=== PATIENT | female | born 1940 | race Caucasian/White ===

== ENCOUNTER 2018-12-08 08:07 | Emergency (ER) | payer MEDICARE ==
[~2018-12-08] VITALS: Ht 157.5 cm; Wt 63.5 kg
[2018-12-08 08:37] LABS: BASOPHILS # (AUTO) 0.1 10^3/uL (0.0-0.1); BASOPHILS % (AUTO) 1 % (0-10); EOSINOPHILS # (AUTO) 0.1 10^3/uL (0.0-0.3); EOSINOPHILS % (AUTO) 2 % (0-10); HEMATOCRIT 23 % (35-52); HEMOGLOBIN 7.2 G/DL (11.5-16.0); LYMPHOCYTES # (AUTO) 1.4 X 10^3 (1.0-4.0); LYMPHOCYTES % (AUTO) 26 % (12-44); MEAN CORPUSCULAR HEMOGLOBIN 34 PG (25-34); MEAN CORPUSCULAR HGB CONC 31 G/DL (32-36); MEAN CORPUSCULAR VOLUME 109 FL (80-99); MEAN PLATELET VOLUME 9.6 FL (7.4-10.4); MONOCYTES # (AUTO) 0.7 X 10^3 (0.0-1.0); MONOCYTES % (AUTO) 13 % (0-12); NEUTROPHILS # (AUTO) 3.1 X 10^3 (1.8-7.8); NEUTROPHILS % (AUTO) 59 % (42-75); PLATELET COUNT 339 10^3/uL (130-400); RED CELL DISTRIBUTION WIDTH 18.8 % (10.0-14.5); WHITE BLOOD COUNT 5.3 10^3/uL (4.3-11.0)
[2018-12-08 08:46] LABS: INR 1.1 (0.8-1.4)
--- NOTE | 2018-12-08 08:54 | ED EENT ---
History of Present Illness General Stated Complaint: NOSE BLEED Source: patient, family Exam Limitations: no limitations (LADAN JIMENEZ MD) History of Present Illness Date Seen by Provider: Dec 08, 2018 Time Seen by Provider: 08:49 Initial Comments The patient is a 78-year-old white female who presents with a chief complaint of nosebleed. She and her state that this had begun last fall and mostly as a drip. More recently and specifically after November 19 this has become an increasing problem. She was seen by the ENT Department at [facility] on Monday. The doctor placed some sort of gel plug in her left nostril. The states that he stated that this should cover it however if bleeding recurred they would have to do a more invasive procedure. Today November 27 day and she is dripping constantly at a bright red blood with flow both anterior and posterior. It is noted that she takes Brilinta. There is also a history of CANAS. At the time of exam she is sitting upright and leaning forwards spitting bright red blood into the basin. Prearrival Treatment: squeezing nostrils, nasal packing (LADAN JIMENEZ MD) Allergies and Home Medications Allergies Coded Allergies: atorvastatin (Verified Allergy, Unknown, 12/08/18) latex (Verified Allergy, Unknown, 12/08/18) Uncoded Allergies: STERISTRIPS (Allergy, Unknown, 12/08/18) Home Medications Gabapentin 100 Mg Capsule, 100 MG PO Q8H, (Reported) Metoprolol Succinate 25 Mg Tab.er.24h, 25 MG PO DAILY, (Reported) Ticagrelor 90 Mg Tablet, 90 MG PO BID, (Reported) Patient Home Medication List Home Medication List Reviewed: Yes (LADAN JIMENEZ MD) Review of Systems Review of Systems Constitutional: see HPI Eyes: No Symptoms Reported Ears: No Symptoms Reported Nose: see HPI, epistaxis, bloody discharge Mouth: no symptoms reported Throat: no symptoms reported Respiratory: no symptoms reported Cardiovascular: no symptoms reported Gastrointestinal: no symptoms reported Musculoskeletal: no symptoms reported Skin: no symptoms reported Neurological: No Symptoms Reported Hematologic/Lymphatic: No Symptoms Reported Immunological/Allergic: no symptoms reported (LADAN JIMENEZ MD) Physical Exam Vital Signs Vital Signs - First Documented 12/08/18 08:49 Temp 98.5 Pulse 114 Resp 18 B/P (MAP) 148/57 (87) Pulse Ox 95 (CLEMENT CHRISTINE MD) Height, Weight, BMI Height: '" Weight: lbs. oz. 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 Skin: normal color (LADAN JIMENEZ MD) Progress/Results/Core Measures Results/Orders Lab Results Laboratory Tests Test 12/08/18 08:26 12/08/18 11:54 Range/Units White Blood Count 5.3 7.3 4.3-11.0 10^3/uL Red Blood Count 2.10 L 1.72 L 4.35-5.85 10^6/uL Hemoglobin 7.2 L 5.9 *L 11.5-16.0 G/DL Hematocrit 23 L 20 *L 35-52 % Mean Corpuscular Volume 109 H 113 H 80-99 FL Mean Corpuscular Hemoglobin 34 34 25-34 PG Mean Corpuscular Hemoglobin Concent 31 L 30 L 32-36 G/DL Red Cell Distribution Width 18.8 H 16.9 H 10.0-14.5 % Platelet Count 339 298 130-400 10^3/uL Mean Platelet Volume 9.6 8.8 7.4-10.4 FL Neutrophils (%) (Auto) 59 42-75 % Lymphocytes (%) (Auto) 26 12-44 % Monocytes (%) (Auto) 13 H 0-12 % Eosinophils (%) (Auto) 2 0-10 % Basophils (%) (Auto) 1 0-10 % Neutrophils # (Auto) 3.1 1.8-7.8 X 10^3 Lymphocytes # (Auto) 1.4 1.0-4.0 X 10^3 Monocytes # (Auto) 0.7 0.0-1.0 X 10^3 Eosinophils # (Auto) 0.1 0.0-0.3 10^3/uL Basophils # (Auto) 0.1 0.0-0.1 10^3/uL Prothrombin Time 14.0 12.2-14.7 SEC INR Comment 1.1 0.8-1.4 Sodium Level 137 135-145 MMOL/L Potassium Level 3.9 3.6-5.0 MMOL/L Chloride Level 108 H 98-107 MMOL/L Carbon Dioxide Level 17 L 21-32 MMOL/L Anion Gap 12 5-14 MMOL/L Blood Urea Nitrogen 11 7-18 MG/DL Creatinine 0.95 0.60-1.30 MG/DL Estimat Glomerular Filtration Rate 57 BUN/Creatinine Ratio 12 Glucose Level 229 H 70-105 MG/DL Calcium Level 9.2 8.5-10.1 MG/DL Corrected Calcium 9.7 8.5-10.1 MG/DL Total Bilirubin 0.5 0.1-1.0 MG/DL Aspartate Amino Transf (AST/SGOT) 25 5-34 U/L Alanine Aminotransferase (ALT/SGPT) 18 0-55 U/L Alkaline Phosphatase 79 40-136 U/L Total Protein 6.2 L 6.4-8.2 GM/DL Albumin 3.4 3.2-4.5 GM/DL (CLEMENT CHRISTINE MD) My Orders Orders - CLEMENT CHRISTINE MD Fresh Frozen Plasma (12/08/18 12:27) (CLEMENT CHRISTINE MD) Medications Given in ED Current Medications Medications Dose Ordered Sig/Trisha Route Start Time Stop Time Status Last Admin Dose Admin Oxymetazoline HCl 15 ml STK-MED ONCE .ROUTE 12/08/18 09:38 12/08/18 09:41 DC 12/08/18 09:46 15 ML (CLEMENT CHRISTINE MD) Vital Signs/I&O 12/08/18 12/08/18 08:49 12:32 Temp 98.5 98.2 Pulse 114 121 Resp 18 20 B/P (MAP) 148/57 (87) 135/48 Pulse Ox 95 95 (CLEMENT CHRISTINE MD) Progress Progress Note : Time: 12:45 Progress Note I arrived at shift change at noon and began assisting Dr. Jimenez with care of this patient. Heart rate is in the one teens and blood pressures are 120s to 160s systolic. There is no active bleeding anteriorly from the nose. Patient feels like there is still bleeding in the posterior pharynx. There is a thin layer of bright red blood on the mucosa of the posterior pharynx and a large clot hanging down behind the uvula. One unit of blood is now hanging and ready to infuse. Patient has received about 700 mL normal saline from a bolus. This fluid was stopped as blood pressures are normal. A second unit of PRBC is being sent with the patient for additional transfusion. Transfer to [facility] was arranged by Dr. Jimenez and EMS is here now to take her. I did give Dr. Waterman ( ENT at [facility]) update. I described the clinical situation and vitals. He did not recommend any further interventions such as nasal packing. Patient will be departing with EMS shortly. A unit of FFP was also considered but will not be thawed promptly and would therefore delay transfer. In the course of my conversations with family, I also spoke with her daughter over the phone. Patient currently has had multiple interventions recently. She has had cauterization performed at the ENT clinic at [facility]. She additionally had an ER visit in which a rapid Rhino packing was applied. Patient removed that packing by accident at home. She then had some type of procoagulant gel or putty packed into the nasal cavity. She has been experiencing heavy bleeding despite those interventions. (CLEMENT CHRISTINE MD) Departure Communication (Admissions) O [id number] Waterman of the ear nose and throat department. Suggestions were given here for an Afrin pack. He would be glad to see the patient at if necessary. 1035 despite Afrin pack and pressure she continues to bleed. Transfer center was called again and Dr. Waterman is being paged. 1040 the transfer service called back and reported that they will accept the patient in transfer. She is to present to the emergency room. 1220 2 repeat hemoglobin was 5.9. This is a reflection both of bleeding and the normal saline. She will receive 1 unit of packed red cells beginning now and will be sent on ambulance with an additional unit. (LADAN JIMENEZ MD) Impression Primary Impression: Epistaxis Additional Impression: Acute blood loss anemia Disposition: XFER SHT-TRM HOSP Condition: Stable/Unchanged Transfer Time Spoke to Accepting Phy: 10:20 Transfer Progress Notes See above progress note Transfer Facility: [facility] emergency room Method of Transfer: EMS (LADAN JIMENEZ MD) Departure-Patient Inst. Decision time for Depature: 10:54 (LADAN JIMENEZ MD) LADAN JIMENEZ MD Dec 08, 2018 08:54 CLEMENT CHRISTINE MD Dec 08, 2018 12:45
[2018-12-08 08:56] LABS: ALBUMIN 3.4 GM/DL (3.2-4.5); BILIRUBIN,TOTAL 0.5 MG/DL (0.1-1.0); CALCIUM 9.2 MG/DL (8.5-10.1); CREATININE SERUM 0.95 MG/DL (0.60-1.30); POTASSIUM 3.9 MMOL/L (3.6-5.0); TOTAL PROTEIN 6.2 GM/DL (6.4-8.2)
--- NOTE | 2018-12-08 09:00 | NUR ---
DR JIMENEZ INFORMED OF PT ACTIVE NOSE BLEED. THIS RN APPLIES NASAL CLAMP TO NARES.
[2018-12-08] MEDS ORDERED: METF-399 PO (09:01)
[2018-12-08] MEDS ORDERED: TICA90TA PO (09:01)
[2018-12-08] MEDS ORDERED: OMEP40CA36 PO (09:07)
[2018-12-08] MEDS ORDERED: LACT10SO33 PO (09:07)
[2018-12-08] MEDS ORDERED: METO-387 PO (09:07)
[2018-12-08] MEDS ORDERED: FURO-125 PO (09:07)
[2018-12-08] MEDS ORDERED: GABA-486 PO (09:07)
[2018-12-08] MEDS ORDERED: SPIR25TA PO (09:07)
[2018-12-08] MEDS ORDERED: ROSU40TA22 PO (09:07)
[2018-12-08] MEDS ORDERED: RIFA550T PO (09:07)
[2018-12-08] MEDS ORDERED: FAMO20TA5 PO (09:07)
[2018-12-08] MEDS ORDERED: CHOL200012 PO (09:07)
--- NOTE | 2018-12-08 09:35 | NUR ---
PT HAS APROX 100 ML OF BLOOD CLOTS IN BOTTOM OF EMESIS BASIN FROM WHAT SHE IS COUGHING UP AND DRIPPING FROM NARES DESPITE NASAL CLAMP AND SEMI-FOWLERS POSITION. DR. JIMENEZ INFORMED.
[2018-12-08] MEDS ORDERED: OXYMETAZOLINE (AFRIN) 0.05% NA 15 ML BTL ONE (09:38)
--- NOTE | 2018-12-08 09:46 | NUR ---
PT NARES SPRAYED WITH AFRIN AND GAUZE SOAKED WITH AFRIN PLACED IN NARES WITH NASAL CLAMP PLACED ON TOP.
--- NOTE | 2018-12-08 10:09 | NUR ---
NOSE CLAMP AND GAUZE REMAIN IN PLACE. PT CONTINUES TO COUGH OF BLOOD CLOTS. PT ALSO REPORTS FEELS LIKE ITS JUST BLEEDING DOWN THE BACK OF HER THROAT.
--- NOTE | 2018-12-08 10:30 | NUR ---
DR JIMENEZ IN ROOM WITH PT AT THIS TIME.
[2018-12-08] MEDS ORDERED: NS IV 1000 ML 1,000 ML IV SCH (11:00)
--- NOTE | 2018-12-08 11:00 | NUR ---
PT SITTING ON EDGE OF BED AND REPORTS TO THIS RN THAT SHE FEELS LIGHT HEADED AND WEAK. THIS RN AND HOSPICE SPIRITUAL CARE COORDINATOR EDIS ASSIST PT BACK INTO BED. PT BP READING 56/31, BUT HAS FALLEN LOWER ON THE PT ARM. PT CUFF REPOSITIONED AND NEXT BP AT 1109 127/45. BLEEDING NOTED TO L EAR AT THIS TIME WELL. DR JIMENEZ INFORMED.
--- NOTE | 2018-12-08 11:15 | NUR ---
DR JIMENEZ IN ROOM WITH THIS RN EXAMINING PT EARS.
--- NOTE | 2018-12-08 11:28 | NUR ---
2ND IV STARTED TO R AC AT THIS TIME AND TYPE AND CROSS DRAWN PER DR. JIMENEZ ORDERS. IV FLUIDS STARTED.
[2018-12-08 12:00] LABS: MEAN PLATELET VOLUME 8.8 FL (7.4-10.4); RED CELL DISTRIBUTION WIDTH 16.9 % (10.0-14.5); WHITE BLOOD COUNT 7.3 10^3/uL (4.3-11.0)
[2018-12-08 12:04] LABS: HEMOGLOBIN 5.9 G/DL (11.5-16.0)
--- NOTE | 2018-12-08 12:20 | NUR ---
DR CHRISTINE IN ROOM EXAMING PT WITH DR JIMENEZ AT THIS TIME.
[2018-12-08 12:32] VITALS: BP 135/48
--- NOTE | 2018-12-08 12:37 | NUR ---
[facility] HERE FOR PT AT THIS TIME.
--- NOTE | 2018-12-08 12:50 | NUR ---
DURRING TRANSFER TO EMS COT PT 20 G IN RAC WAS DCD ACCIDENTILY. BLOOD ADMIN TEMPERALLY STOPPED. APROX 127 ML OF BLOOD INFUSED PRIOR TO TRANSFER. EMS TO RESTART INFUSION IN ROUTE. 1 MORE UNIT OF O POS RED CELLS AND 1 UNIT OF FFP SENT WITH EMS UPON TRANSFER.
[2018-12-08 13:00] VITALS: BP 136/46
== END 2018-12-08 13:00 | disposition short-term general hospital (02) ==
LOC: ER 08:09
DX: R04.0 Epistaxis (principal); D50.9 Iron deficiency anemia, unspecified; Z91.040 Latex allergy status; Z91.048 Other nonmedicinal substance allergy status; Z88.8 Allergy status to other drugs, medicaments and biological substances
CPT/HCPCS: 30903; 30905; 36415; 80053; 85025; 85027; 85610; 86850; 86900; 86901; 86920